=== PATIENT | male | born 1950 | race African-American/Black ===

== ENCOUNTER 2021-11-30 23:16 | Emergency (ER) | payer OTHER ==
[2021-12-01] MEDS ORDERED: NA CHLORIDE 0.9% 1,000 ML ONE (00:18)
[2021-12-01] MEDS ORDERED: FAMOTIDINE 20 MG/2 ML VIAL IV ONE (00:18)
[2021-12-01] MEDS ORDERED: ONDANSETRON 4 MG/2 ML VIAL ONE (00:18)
[2021-12-01 00:33] LABS: Urine Blood Negative (Negative); Urine Glucose Negative (Negative); Urine Protein Negative (Negative); Urine Specific Gravity 1.015 (1.005-1.030); Urine pH 8.5 (5.0-7.0)
[2021-12-01 00:46] LABS: Absolute Lymphocytes (CBC) 1.4 K/uL (0.7-4.9); Hematocrit 36.7 % (39.6-49.0); MPV 7.3 fL (7.6-11.3); RBC Red Blood Cell Count 4.08 M/uL (4.33-5.43)
[2021-12-01 00:48] LABS: Protime INR 1.14
[2021-12-01] MEDS ORDERED: NA CHLORIDE 0.9% 100 ML ONE (00:56)
[2021-12-01] MEDS ORDERED: PIPERACIL/TAZO 3.375 GM VIAL IV ONE (00:56)
[2021-12-01 01:01] LABS: SARS-CoV-2 Antigen Rapid Res Negative (Negative)
[2021-12-01 01:16] LABS: Albumin 3.3 g/dL (3.4-5.0); Bilirubin Direct 0.1 mg/dL (0-0.2); Bilirubin Total 0.4 mg/dL (0.2-1.0); Potassium 3.2 mmol/L (3.5-5.1); Protein, Total 7.4 g/dL (6.4-8.2); Troponin High Sensitivity 5.2 pg/mL (<58.9)
--- NOTE | 2021-12-01 01:25 | EDPHYS ---
Physician Documentation [facility] Name: Dheeraj Larios Age: 71 yrs Sex: Male : 1950 Arrival Date: 11/30/2021 Time: 23:17 Bed 14 Private MD: ED Physician Agustín Meza HPI: 12/01 00:13 This 71 yrs old Black Male presents to ER via Wheelchair with complaints of Abdominal meggan Pain. 00:13 The patient presents with abdominal pain in the epigastric area, in the upper abdomen, meggan abdominal distention in the upper abdomen, in the lower abdomen. Onset: The symptoms/episode began/occurred last night. The symptoms do not radiate. Associated signs and symptoms: Pertinent positives:. The symptoms are described as crampy, dull. Modifying factors: The symptoms are alleviated by nothing, the symptoms are aggravated by movement, touching the area, walking. Severity of pain: At its worst the pain was mild moderate in the emergency department the pain is unchanged. The patient has not experienced similar symptoms in the past. Historical: - Allergies: 11/30 23:33 No Known Allergies; kd3 - Home Meds: 23:33 HTN med [Active]; kd3 - PMHx: 23:33 Hypercholesterolemia; Hypertensive disorder; kd3 - PSHx: 23:33 None; kd3 - Immunization history:: Client reports receiving the 2nd dose of the Covid vaccine. - Social history:: Smoking status: Patient denies any tobacco usage or history of. - Family history:: not pertinent. ROS: 12/01 00:13 Constitutional: Negative for fever, chills, and weight loss, Eyes: Negative for injury, meggan pain, redness, and discharge, ENT: Negative for injury, pain, and discharge, Neck: Negative for injury, pain, and swelling, Cardiovascular: Negative for chest pain, palpitations, and edema, Respiratory: Negative for shortness of breath, cough, wheezing, and pleuritic chest pain, Back: Negative for injury and pain, : Negative for injury, bleeding, discharge, and swelling, MS/Extremity: Negative for injury and deformity, Skin: Negative for injury, rash, and discoloration, Neuro: Negative for headache, weakness, numbness, tingling, and seizure, Psych: Negative for depression, anxiety, suicide ideation, homicidal ideation, and hallucinations, Allergy/Immunology: Negative for hives, rash, and allergies, Endocrine: Negative for neck swelling, polydipsia, polyuria, polyphagia, and marked weight changes, Hematologic/Lymphatic: Negative for swollen nodes, abnormal bleeding, and unusual bruising. Abdomen/GI: Positive for abdominal pain, of the umbilical area, right upper quadrant and left upper quadrant. Exam: 00:13 Constitutional: This is a well developed, well nourished patient who is awake, alert, meggan and in no acute distress. Head/Face: Normocephalic, atraumatic. Eyes: Pupils equal round and reactive to light, extra-ocular motions intact. Lids and lashes normal. Conjunctiva and sclera are non-icteric and not injected. Cornea within normal limits. Periorbital areas with no swelling, redness, or edema. ENT: Nares patent. No nasal discharge, no septal abnormalities noted. Tympanic membranes are normal and external auditory canals are clear. Oropharynx with no redness, swelling, or masses, exudates, or evidence of obstruction, uvula midline. Mucous membranes moist. Neck: Trachea midline, no thyromegaly or masses palpated, and no cervical lymphadenopathy. Supple, full range of motion without nuchal rigidity, or vertebral point tenderness. No Meningismus. Chest/axilla: Normal chest wall appearance and motion. Nontender with no deformity. No lesions are appreciated. Cardiovascular: Regular rate and rhythm with a normal S1 and S2. No gallops, murmurs, or rubs. Normal PMI, no JVD. No pulse deficits. Respiratory: Lungs have equal breath sounds bilaterally, clear to auscultation and percussion. No rales, rhonchi or wheezes noted. No increased work of breathing, no retractions or nasal flaring. Back: No spinal tenderness. No costovertebral tenderness. Full range of motion. Male : Normal genitalia with no discharge or lesions. Skin: Warm, dry with normal turgor. Normal color with no rashes, no lesions, and no evidence of cellulitis. MS/ Extremity: Pulses equal, no cyanosis. Neurovascular intact. Full, normal range of motion. Neuro: Awake and alert, GCS 15, oriented to person, place, time, and situation. Cranial nerves II-XII grossly intact. Motor strength 5/5 in all extremities. Sensory grossly intact. Cerebellar exam normal. Normal gait. Psych: Awake, alert, with orientation to person, place and time. Behavior, mood, and affect are within normal limits. 00:13 Abdomen/GI: Inspection: distension, that is mild, Bowel sounds: active, Palpation: moderate abdominal tenderness, in the right upper quadrant and left upper quadrant, Liver: no appreciated palpable abnormalities, Hernia: not appreciated. 01:43 ECG was reviewed by the Attending Physician. [facility] Vital Signs: 11/30 23:32 BP 134 / 75; Pulse 99; Resp 18; Temp 97.8(O); Pulse Ox 100% on R/A; Pain 10/10; kd3 12/01 02:03 BP 116 / 74; Pulse 85; Resp 18; Pulse Ox 97% on R/A; Pain 0/10; ke1 07:30 BP 115 / 73; Pulse 70; Resp 16; Pulse Ox 100% ; bp 08:59 BP 124 / 86; Pulse 69; Resp 16; Pulse Ox 99% ; bp MDM: 11/30 23:21 Patient medically screened. [facility] 12/01 00:15 Differential diagnosis: cholecystitis, Cholelithiasis, diverticulitis, gastritis, meggan Hepatitis, non-specific abd pain, pancreatitis, Peptic Ulcer Disease, Prostatitis, Pyelonephritis, Ureterolithiasis, urinary tract infection. Data reviewed: vital signs, nurses notes, lab test result(s), EKG, radiologic studies, CT scan, plain films. Data interpreted: call center support consultant: rate is 99 beats/min, rhythm is regular, Pulse oximetry: on room air is 100 %. Counseling: I had a detailed discussion with the patient and/or guardian regarding: the historical points, exam findings, and any diagnostic results supporting the discharge/admit diagnosis, lab results, radiology results. 11/30 23:41 Order name: Basic Metabolic Panel; Complete Time: : [facility] 11/30 23:41 Order name: CBC with Diff; Complete Time: : [facility] 11/30 23:41 Order name: LFT's; Complete Time: : [facility] 11/30 23:41 Order name: Magnesium; Complete Time: : [facility] 11/30 23:41 Order name: NT PRO-BNP; Complete Time: : [facility] 11/30 23:41 Order name: PT-INR; Complete Time: 01:05 [facility] 11/30 23:41 Order name: Troponin HS; Complete Time: 01:21 [facility] 11/30 23:41 Order name: XRAY Chest (1 view) [facility] 11/30 23:41 Order name: Lipase; Complete Time: 01:21 [facility] 11/30 23:41 Order name: US Abdomen Limited [facility] 11/30 23:41 Order name: SARS RAPID; Complete Time: 01:05 [facility] 12/01 00:34 Order name: Urine Dipstick-Ancillary; Complete Time: 00:35 EDID 12/01 00:37 Order name: Urine Dipstick-Ancillary [facility] 12/01 01:37 Order name: CREATININE WHOLE BLOOD; Complete Time: 02:58 EDID 11/30 23:41 Order name: EKG; Complete Time: 23:42 [facility] 11/30 23:41 Order name: Cardiac monitoring; Complete Time: 01:51 [facility] 11/30 23:41 Order name: EKG - Nurse/Tech; Complete Time: 01:51 [facility] 11/30 23:41 Order name: IV Saline Lock; Complete Time: 00:28 [facility] 11/30 23:41 Order name: Labs collected and sent; Complete Time: 01:51 [facility] 11/30 23:41 Order name: O2 Per Protocol; Complete Time: 01:51 [facility] 11/30 23:41 Order name: CT Abd/Pelvis - IV Contrast Only [facility] 11/30 23:41 Order name: O2 Sat Monitoring; Complete Time: 01:51 [facility] 11/30 23:41 Order name: Urine Dipstick-Ancillary (obtain specimen); Complete Time: 00:39 meggan EC:43 Rate is 85 beats/min. Rhythm is regular. QRS [place] is Normal. MO interval is normal. QRS meggan interval is normal. QT interval is normal. No Q waves. T waves are Normal. No ST changes noted. Clinical impression: NSR w/ Non-specific ST/T Changes, 1st degree heart block, and No evidence of ischemia. Interpreted by me. Reviewed by me. Administered Medications: :22 Discontinued: NS 0.9% 1000 ml IV at 125 ml/hr continuous meggan 00:11 CANCELLED (Duplicate Order): morphine 4 mg IVP once over 4 mins meggan 00:27 Drug: Zofran (Ondansetron) 4 mg Route: IVP; Site: right antecubital; ke1 01:00 Follow up: Response: No adverse reaction; NO NAUSEA ke1 00:27 Drug: Pepcid (famotidine) 20 mg Route: IVP; Site: right antecubital; ke1 01:00 Follow up: Response: No adverse reaction ke1 00:39 Drug: NS 0.9% 500 ml Route: IV; Rate: bolus; Site: right antecubital; ke1 01:58 Follow up: IV Status: Completed infusion ke1 00:39 Drug: NS 0.9% 1000 ml Route: IV; Rate: 125 ml/hr; Site: right antecubital; ke1 00:39 Not Given (Patient Refused; NOT IN PAINn): fentaNYL (PF) 50 mcg IVP once ke1 01:45 Drug: Zosyn (piperacillin-tazobactam) 3.375 grams {Note: Patient refused earlier and ke1 then changed his mind.} Route: IVPB; Infused Over: 60 mins; Site: right antecubital; 08:58 Follow up: IV Status: Completed infusion bp 01:51 Drug: NS 0.9% 1000 ml Route: IV; Rate: 1 bolus; Site: right antecubital; ke1 08:59 Follow up: IV Status: Completed infusion bp 01:56 Drug: NS 0.9% with KCl 20 mEq/L 1000 ml Route: IV; Rate: 125 ml/hr; Site: right ke1 antecubital; 08:59 Follow up: IV Status: Completed infusion; IV Intake: 1000ml bp Disposition Summary: 12/01/21 01:24 Transfer Ordered Transfer Location: [facility] meggan Reason: Higher level of care meggan Condition: Fair meggan Problem: new meggan Symptoms: have improved meggan Accepting Physician: to [facility](12/01/21 09:12) bp Diagnosis - Calculus of gallbladder and bile duct with acute cholecystitis with obstruction meggan - Epigastric abdominal tenderness meggan - Hypokalemia meggan - Biliary acute pancreatitis meggan Forms: - Medication Reconciliation Form meggan - SBAR form meggan Signatures: Dispatcher [employer] EDAgustín Lerner MD MD cha Peltier, Brian, RN RN Janet Tidwell RN RN kd3 Charisse Alvarenga RN RN ke1 Corrections: (The following items were deleted from the chart) 00:11 11/30 23:41 morphine 4 mg IVP once over 4 mins [facility]. meggan [facility] 12/01 01:24 01:24 to [facility] : 01:24 to [facility] : 01: to [facility] bp
--- NOTE | 2021-12-01 01:25 | ER ---
Nurse's Notes [facility] Name: Dheeraj Larios Age: 71 yrs Sex: Male : 1950 Arrival Date: 11/30/2021 Time: 23:17 Bed 14 Private MD: Diagnosis: Calculus of gallbladder and bile duct with acute cholecystitis with obstruction;Epigastric abdominal tenderness;Hypokalemia;Biliary acute pancreatitis Presentation: 11/30 23:32 Chief complaint: Patient states: 10/10 pain its constant Spouse and/or significant kd3 other states: he has a sudden abd pain started about 45 min ago. Coronavirus screen: Vaccine status: Patient reports receiving the 2nd dose of the covid vaccine. Ebola Screen: No symptoms or risks identified at this time. Initial Sepsis Screen: Does the patient meet any 2 criteria? No. Patient's initial sepsis screen is negative. Does the patient have a suspected source of infection? No. Patient's initial sepsis screen is negative. Risk Assessment: Do you want to hurt yourself or someone else? Patient reports no desire to harm self or others. Onset of symptoms was November 30, 2021. 23:32 Method Of Arrival: Wheelchair kd3 23:32 Acuity: SUSANA 3 kd3 Triage Assessment: 23:33 General: Appears distressed, uncomfortable, Behavior is cooperative, moaning. Pain: kd3 Complains of pain in right upper quadrant and left upper quadrant Pain currently is 10 out of 10 on a pain scale. Pain began 30 min ago. Is continuous. GI: Abd is soft and non tender X 4 quads. Historical: - Allergies: 23:33 No Known Allergies; kd3 - Home Meds: 23:33 HTN med [Active]; kd3 - PMHx: 23:33 Hypercholesterolemia; Hypertensive disorder; kd3 - PSHx: 23:33 None; kd3 - Immunization history:: Client reports receiving the 2nd dose of the Covid vaccine. - Social history:: Smoking status: Patient denies any tobacco usage or history of. - Family history:: not pertinent. Screenin/26 00:39 Abuse screen: Denies threats or abuse. Nutritional screening: No deficits noted. ke1 Tuberculosis screening: No symptoms or risk factors identified. Fall Risk None identified. Assessment: 00:40 GI: Bowel sounds hypoactive in right upper quadrant, left upper quadrant, right lower ke1 quadrant and left lower quadrant. 07:00 Reassessment: RECD REPORT FROM LALITA BONNER. 71YO BM P/W ABDOMINAL PAIN. TRANSFER IN bp PROCESS FOR OBSTRUCTIVE CHOLELITHIASIS. TRANSPORT PENDING. 09:00 Reassessment: [facility] AT B/S FOR TRANSPORT. bp Vital Signs: 11/30 23:32 BP 134 / 75; Pulse 99; Resp 18; Temp 97.8(O); Pulse Ox 100% on R/A; Pain 10/10; kd3 12/01 02:03 BP 116 / 74; Pulse 85; Resp 18; Pulse Ox 97% on R/A; Pain 0/10; ke1 07:30 BP 115 / 73; Pulse 70; Resp 16; Pulse Ox 100% ; bp 08:59 BP 124 / 86; Pulse 69; Resp 16; Pulse Ox 99% ; bp ED Course: 11/30 23:17 Patient arrived in ED. bp1 23:21 Agustín Meza MD is Attending Physician. meggan 23:31 Charisse Alvarenga, KAILEY is Primary Nurse. ke1 23:33 Triage completed. kd3 23:35 Arm band placed on. kd3 12/01 00:20 XRAY Chest (1 view) In Process Unspecified. EDMS 00:27 Inserted saline lock: 20 gauge in right antecubital area, using aseptic technique. ke1 00:38 US Abdomen Limited In Process Unspecified. EDMS 00:40 Patient has correct armband on for positive identification. Bed in low position. Call ke1 light in reach. 00:56 CT Abd/Pelvis - IV Contrast Only In Process Unspecified. EDMS 01:24 Dr. Meza initiated transfer to [facility], spoke with Alden Painter. wm 03:59 Pt accepted for transfer by Dr. Dayami Curry \T\ 03:04 per Alden Painter. wm 07:22 Primary Nurse role handed off by Charisse Alvarenga, KAILEY bp 07:22 Luis Carlos Hines, KAILEY is Primary Nurse. bp 09:00 No provider procedures requiring assistance completed. Patient transferred, IV remains bp in place. Administered Medications: 01:22 Discontinued: NS 0.9% 1000 ml IV at 125 ml/hr continuous meggan 00:11 CANCELLED (Duplicate Order): morphine 4 mg IVP once over 4 mins meggan 00:27 Drug: Zofran (Ondansetron) 4 mg Route: IVP; Site: right antecubital; ke1 01:00 Follow up: Response: No adverse reaction; NO NAUSEA ke1 00:27 Drug: Pepcid (famotidine) 20 mg Route: IVP; Site: right antecubital; ke1 01:00 Follow up: Response: No adverse reaction ke1 00:39 Drug: NS 0.9% 500 ml Route: IV; Rate: bolus; Site: right antecubital; ke1 01:58 Follow up: IV Status: Completed infusion ke1 00:39 Drug: NS 0.9% 1000 ml Route: IV; Rate: 125 ml/hr; Site: right antecubital; ke1 00:39 Not Given (Patient Refused; NOT IN PAINn): fentaNYL (PF) 50 mcg IVP once ke1 01:45 Drug: Zosyn (piperacillin-tazobactam) 3.375 grams {Note: Patient refused earlier and ke1 then changed his mind.} Route: IVPB; Infused Over: 60 mins; Site: right antecubital; 08:58 Follow up: IV Status: Completed infusion bp 01:51 Drug: NS 0.9% 1000 ml Route: IV; Rate: 1 bolus; Site: right antecubital; ke1 08:59 Follow up: IV Status: Completed infusion bp 01:56 Drug: NS 0.9% with KCl 20 mEq/L 1000 ml Route: IV; Rate: 125 ml/hr; Site: right ke1 antecubital; 08:59 Follow up: IV Status: Completed infusion; IV Intake: 1000ml bp Medication: 09:00 VIS not applicable for this client. bp Intake: 08:59 IV: 1000ml; Total: 1000ml. bp Outcome: 01:24 ER care complete, transfer ordered by . meggan 09:00 Transferred by ground EMS to [facility], Transfer form completed. bp 09:00 Condition: stable 09:00 Instructed on the need for transfer. 09:12 Patient left the ED. bp Signatures: Dispatcher [employer] EDMS Agustín Meza MD MD cha Peltier, Brian, RN RN bp Savannah Cohen Wendy wm Doucette, Kyli, RN RN kd3 Charisse Alvarenga, RN RN ke1
[2021-12-01] MEDS ORDERED: NS KCL 20MEQ 1,000 ML IV ONE (02:03)
[2021-12-01 10:10] VITALS: TEMP 97.8
[2021-12-01 10:17] VITALS: BP 124/86; O2SAT 99
--- NOTE | 2021-12-02 14:23 | RAD REPORT ---
EXAM DESCRIPTION: CT - Abdomen Pelvis W Contrast - 12/01/2021 6:40 am CLINICAL HISTORY: RLQ abdominal pain TECHNIQUE: Axial computed tomography images of the abdomen and pelvis with intravenous contrast. S agittal and coronal reformatted images were created and reviewed. This CT exam was performed using one or more of the following dose reduction techniques: automated exposure control, adjustment of t he mA and/or kV according to patient size, and/or use of iterative reconstruction technique. COMPARISON: Right upper quadrant ultrasound dated 12/01/2021 FINDINGS: Lung bases: Bibasilar subsegmental atelectasis. ABDOMEN: Liver: Unremarkable. No mass. Gallbladder and bile ducts: Lobulated soft tissue density at the level of the gallbladder fundus me asuring approximately 3.3 x 2.9 by mild gallbladder wall thickening and pericholecystic fluid. Mild biliary dilatation. Pancreas: Mild infiltrative changes surrounding the pancreatic head and uncinate process. No duct al dilation. Spleen: Unremarkable. No splenomegaly. Adrenals: Unremarkable. No mass. Kidneys and ureters: 1.5 cm and 1.9 cm right renal cysts. No follow-up imaging is necessary. There may be punctate bilateral calculi. No hydronephrosis. Stomach and bowel: Moderate stool. No bowel obstruction. No appreciable mucosal thickening. PELVIS: Appendix: Normal caliber appendix. No findings to suggest acute appendicitis. Bladder: Unremarkable. No mass. Reproductive: Unremarkable as visualized. ABDOMEN and PELVIS: Intraperitoneal space: Unremarkable. No free air. No significant fluid collection. Bones/joints: Multilevel spondylosis. No acute fracture. No dislocation. Soft tissues: Unremarkable. Vasculature: Mild atherosclerotic disease. No abdominal aortic aneurysm. Lymph nodes: Mildly enlarged cynthia hepatic and portacaval lymph nodes measuring up to 15 mm in shor t axis. IMPRESSION: 1. Findings which may be related to gallbladder sludge and possible acute cholecystiti s. Underlying gallbladder mass cannot be entirely excluded. 2. Mild infiltrative changes surrounding the pancreatic head and uncinate process. Suggest labora tory correlation for acute pancreatitis. 3. Other findings as above. Electronically signed by: Peterson Daniels MD 12/01/2021 2:01 AM CDT Due to temporary technical issues with the PACS/Fluency reporting system, reports are being signed by the in house radiologists without review as a courtesy to insure prompt reporting. The interpreting radiologist is fully responsible for the content of the report.
--- NOTE | 2021-12-02 14:35 | RAD REPORT ---
EXAM DESCRIPTION: RAD - Chest Single View - 12/01/2021 12:18 am CLINICAL HISTORY: The patient is 71 years old and is Male; ABDOMINAL DISTENTION TECHNIQUE: Frontal view of the chest. COMPARISON: No relevant prior studies available. FINDINGS: Lungs: Unremarkable. No consolidation. Pleural space: Unremarkable. No pneumothorax. Heart: Unremarkable. Mediastinum: Unremarkable. Bones/joints: Unremarkable. IMPRESSION: No acute findings in the chest. Electronically signed by: Jose Peñaloza MD 12/01/2021 12:30 AM CDT Due to temporary technical issues with the PACS/Fluency reporting system, reports are being signed by the in house radiologists without review as a courtesy to insure prompt reporting. The interpreting radiologist is fully responsible for the content of the report.
--- NOTE | 2021-12-02 14:40 | RAD REPORT ---
EXAM DESCRIPTION: US - Abdomen Exam Limited - 12/01/2021 1:32 am CLINICAL HISTORY: 71 years Male, ABD PAIN COMPARISON: None. TECHNIQUE: Limited sonographic imaging of the right upper quadrant was performed. FINDINGS: Echogenic material within the gallbladder noted suggestive of sludge. Gallbladder wall antonella ears thickened at the fundus measuring 6.5 mm and 3 mm within the body. No obvious gallstones. Common bile duct measures 7.7 mm in width and is slightly dilated. Gallbladder appears normal in size. IMPRESSION: 1. Gallbladder sludge. Nonspecific gallbladder wall thickening at the fundus. 2. Slightly dilated common bile duct. Electronically signed by: Moses Nguyen MD 12/01/2021 1:03 AM CDT Due to temporary technical issues with the PACS/Fluency reporting system, reports are being signed by the in house radiologists without review as a courtesy to insure prompt reporting. The interpreting radiologist is fully responsible for the content of the report.
--- NOTE | 2021-12-02 15:21 | EKG ---
Test Date: 2021-12-01 Test Time: 01:42:27 Radio Repairer: JAX MEASUREMENT RESULTS: Intervals: Rate: 85 DE: 288 QRSD: 106 QT: 342 QTc: 406 [place]: P: 67 DE: 288 QRS: -10 T: 38 INTERPRETIVE STATEMENTS: Sinus rhythm with 1st degree AV block Possible Left atrial enlargement Septal infarct, age undetermined Abnormal ECG No previous ECG available for comparison Electronically Signed On 12-02-21 15:19:13 CDT by Axel Mcgraw
== END 2021-12-01 09:12 | disposition short-term general hospital (02) ==
LOC: ER 23:16
DX: K80.63 Calculus of gallbladder and bile duct with acute cholecystitis with obstruction (principal); E87.6 Hypokalemia; K85.10 Biliary acute pancreatitis without necrosis or infection; I10 Essential (primary) hypertension; Z20.822 Contact with and (suspected) exposure to COVID-19
CPT/HCPCS: 96365; 96361; 93005; 85025; 80048; 36415; 83735; 85610; 82565; 80076; 81003; 84484; 83690; 83880; 74177; 71045; 76705; 96375; 99285; 96366; 87811; Q9967; J2543; J7030; J2405; J3480